=== PATIENT | female | born 1945 | race Caucasian/White ===

== ENCOUNTER 2019-02-19 09:57 | Day surgery (SDC) | payer MEDICARE ==
[~2019-02-19] VITALS: Ht 149.9 cm; Wt 59.2 kg
[~2019-02-19 09:57] MED LIST: ALBU18HF INH
[2019-02-19] MEDS ORDERED: LACTATED RINGERS 1,000 ML IV SCH (10:29)
[2019-02-19] MEDS ORDERED: VITAMIN C PO (10:43)
[2019-02-19] MEDS ORDERED: ALBUTEROL NEBULIZER INH (10:43)
[2019-02-19] MEDS ORDERED: VITAMIN D3 PO (10:43)
[2019-02-19] MEDS ORDERED: MSM PO (10:43)
[2019-02-19] MEDS ORDERED: COMBIVENT INH (10:43)
[2019-02-19 10:48] VITALS: BP 135/82
[2019-02-19] MEDS ORDERED: PLEASE ENTER HEIGHT AND WEIGHT MC SCH (11:00)
[2019-02-19] MEDS ORDERED: KETOROLAC 30 MG/1 ML IV PRN (11:30)
[2019-02-19] MEDS ORDERED: ALBUTEROL/IPRATROPIUM 2.5MG/0.5MG, 3 ML NPPB PRN (11:30)
[2019-02-19] MEDS ORDERED: ACETAMINOPHEN 325 MG TABLET PO PRN (11:30)
[2019-02-19] MEDS ORDERED: FENTANYL PF 100 MCG/2ML IV PRN (11:30)
[2019-02-19] MEDS ORDERED: hydrALAzine 20 MG/ML, 1ML IV PRN (11:30)
[2019-02-19] MEDS ORDERED: ONDANSETRON 2MG/ML, 2ML IV PRN (11:30)
[2019-02-19] MEDS ORDERED: MIDAZOLAM 1 MG/ML, 2ML IV PRN (11:30)
[2019-02-19] MEDS ORDERED: PROPOFOL 50 ML ONE (12:00)
== END 2019-02-19 13:45 | disposition home or self-care (01) ==
LOC: OUT 09:57
PROVIDERS: ATTEND Internal Medicine Geriatric Medicine
DX: K86.9 Disease of pancreas, unspecified (principal); J44.9 Chronic obstructive pulmonary disease, unspecified; F17.210 Nicotine dependence, cigarettes, uncomplicated
CPT/HCPCS: 43259; 93005; J2704; J7120; J3010

== ENCOUNTER 2021-01-29 15:15 | Outpatient (CLI) | payer MEDICARE ==
[~2021-01-29 15:15] MED LIST changes: +ALBUTEROL NEBULIZER INH; +AMOX1TAB64 PO; +COMBIVENT INH; +MSM PO; +ONDA4TAB13 PO; +VITAMIN C PO; +VITAMIN D3 PO
[2021-02-01] MEDS ORDERED: ALBU8.5H8 INH (11:17)
[2021-02-01] MEDS ORDERED: LEVO50TA5 PO (11:17)
[2021-02-01] MEDS ORDERED: CHOL10003 PO (11:17)
[2021-02-01] MEDS ORDERED: CALC600T60 PO (11:17)
[2021-02-01] MEDS ORDERED: PRED5DRO2 EACHEYE (11:17)
[2021-02-01] MEDS ORDERED: AMOX1TAB64 PO (11:17)
[2021-02-01] MEDS ORDERED: BIOT1TAB2 PO (11:17)
[2021-02-01] MEDS ORDERED: PRAS1TAB3 PO (11:17)
[2021-02-01] MEDS ORDERED: MAGN100T3 PO (11:17)
[2021-02-01] MEDS ORDERED: VITA100C11 PO (11:17)
[2021-02-04] MEDS ORDERED: OXYC1TAB12 PO (08:11)
[2021-03-23] MEDS ORDERED: AMPI3VIA IV (13:06)
[2021-03-23] MEDS ORDERED: FLUC200T PO (13:06)
[2021-03-23] MEDS ORDERED: DAPT500V6 IV (13:06)
[2021-04-09] MEDS ORDERED: FLUC200T PO (15:23)
[2021-04-09] MEDS ORDERED: LINE600T15 PO (15:23)
[2021-04-09] MEDS ORDERED: PIPE3.375 IV (15:23)
== END 2021-01-29 23:59 | disposition home or self-care (01) ==
LOC: STAR 15:15
PROVIDERS: ATTEND Surgery
DX: Z20.822 Contact with and (suspected) exposure to COVID-19 (principal)
CPT/HCPCS: U0003

== ENCOUNTER 2021-02-04 05:51 | Day surgery (SDC) | payer MEDICARE ==
[~2021-02-04] VITALS: Ht 152.4 cm; Wt 53.0 kg
[~2021-02-04 05:51] MED LIST changes: +ALBU8.5H8 INH; +BIOT1TAB2 PO; +CALC600T60 PO; +CHOL10003 PO; +LEVO50TA5 PO; +MAGN100T3 PO; +PRAS1TAB3 PO; +PRED5DRO2 EACHEYE; +VITA100C11 PO
[2021-02-04] MEDS ORDERED: EPINEPHRINE 1 MG/ML, 1ML ONE (06:46)
[2021-02-04] MEDS ORDERED: BUPIVACAINE/PF 0.25% ONE (06:46)
[2021-02-04] MEDS ORDERED: LACTATED RINGERS 1,000 ML IV SCH (07:00)
[2021-02-04] MEDS ORDERED: CHLORHEXIDINE 15 ML UDC PO ONE (07:00)
[2021-02-04 07:19] VITALS: BP 117/71
[2021-02-04] MEDS ORDERED: FENTANYL PF 250 MCG/5ML ONE (07:56)
[2021-02-04] MEDS ORDERED: MIDAZOLAM 1 MG/ML, 2ML ONE (07:56)
[2021-02-04] MEDS ORDERED: OXYC1TAB14 PO (08:11)
[2021-02-04] MEDS ORDERED: ONDA4TAB7 PO (08:11)
[2021-02-04] MEDS ORDERED: SUCCINYLCHOLINE 20 MG/ML, 10ML ONE (08:14)
[2021-02-04] MEDS ORDERED: ROCURONIUM 10 MG/ML,10ML ONE (08:14)
[2021-02-04] MEDS ORDERED: ONDANSETRON 2MG/ML, 2ML ONE (08:14)
[2021-02-04] MEDS ORDERED: DEXAMETHASONE 4 MG/ML, 1ML ONE (08:14)
[2021-02-04] MEDS ORDERED: PROPOFOL 10 MG/ML, 20ML ONE (08:14)
[2021-02-04] MEDS ORDERED: CEFAZOLIN 1,000 MG ONE (08:14)
[2021-02-04] MEDS ORDERED: BUPIVACAINE/PF-EPI 0.5% 1:200K INFIL ONE (08:31)
[2021-02-04] MEDS ORDERED: ACETAMINOPHEN 650 MG/20.3 ML UDC ONE (09:21)
[2021-02-04] MEDS ORDERED: OXYcodone 5 MG/5 ML ORAL.SOL UDC ONE (09:22)
[2021-02-04] MEDS ORDERED: FENTANYL PF 100 MCG/2ML ONE (09:22)
[2021-02-04] MEDS ORDERED: LABETALOL 5MG/ML, 20ML IV PRN (09:30)
[2021-02-04] MEDS ORDERED: DIAZEPAM 5 MG/ML, 2ML IV PRN ×2 (09:30)
[2021-02-04] MEDS ORDERED: FENTANYL PF 100 MCG/2ML IV PRN (09:30)
[2021-02-04] MEDS ORDERED: OXYcodone 5 MG/5 ML ORAL.SOL UDC PO PRN (09:30)
[2021-02-04] MEDS ORDERED: PROMETHAZINE 25 MG/ML, 1ML IV PRN (09:30)
[2021-02-04] MEDS ORDERED: MEPERIDINE/PF 25MG/0.5ML IVPush PRN (09:30)
[2021-02-04] MEDS ORDERED: ONDANSETRON 2MG/ML, 2ML IVPush PRN (09:30)
[2021-02-04] MEDS ORDERED: hydrALAzine 20 MG/ML, 1ML IV PRN (09:30)
[2021-02-04] MEDS ORDERED: METOCLOPRAMIDE 5 MG/ML, 2ML IV PRN (09:30)
[2021-02-04] MEDS ORDERED: ALBUTEROL SULFATE 2.5 MG/3 ML NPPB PRN (09:30)
[2021-02-04] MEDS ORDERED: HYDROmorphone 1 MG/ML, 1ML INJ IV PRN (09:30)
[2021-02-04] MEDS ORDERED: KETOROLAC 30 MG/1 ML IV PRN (09:30)
[2021-02-04] MEDS ORDERED: KETOROLAC 30 MG/1 ML ONE (09:37)
== END 2021-02-04 13:30 | disposition home or self-care (01) ==
LOC: OUT 05:51
PROVIDERS: ATTEND Surgery
DX: K43.6 Other and unspecified ventral hernia with obstruction, without gangrene (principal); J45.909 Unspecified asthma, uncomplicated; M19.90 Unspecified osteoarthritis, unspecified site; M81.0 Age-related osteoporosis without current pathological fracture; F17.210 Nicotine dependence, cigarettes, uncomplicated; Z91.030 Bee allergy status; Z79.2 Long term (current) use of antibiotics; Z79.899 Other long term (current) drug therapy; Z72.89 Other problems related to lifestyle; Z90.49 Acquired absence of other specified parts of digestive tract; Z98.890 Other specified postprocedural states
CPT/HCPCS: 49561; 49568; C1781; J0171; J1885; J2250; J3010; J7120; J0690; J1100; J2405; J2704; J0330